=== PATIENT | male | born 1970 | race Caucasian/White ===

== ENCOUNTER 2019-02-21 08:48 | Emergency (ER) | payer OTHER ==
--- NOTE | 2019-02-21 09:37 | ED Physician Documentation ---
PD HPI ABD PAIN - Stated complaint Stated Complaint: SIDE PAIN - Chief complaint Chief Complaint: Abd Pain - History obtained from History obtained from: Patient - History of Present Illness Timing - onset: How many days ago (3) Timing - duration: Days (3) Timing - details: Gradual onset, Still present, Waxing and waning Quality: Sharp, Pain Location: RUQ, LUQ Radiation: Left flank Worsened by: Breathing Associated symptoms: No: Fever, Nausea, Vomiting Similar symptoms before: Has not had sx before Recently seen: Not recently seen - Additional information Additional information: Previously well 49-year-old male has developed pain in both of his flanks over the past 3 days. He has had some of the right side he said some in the left side today's had pain in the left side and it hurts to take deep breath. He does not have any other pain and he has not had vomiting he has been able to eat he is had normal bowel movements. He denies any urinary urgency or dysuria he does state that he has some foul-smelling urine. He notes cloudiness to his urine periodically. He is felt that he has had some type of a problem for 2 years. He does have a history previously of kidney stone is had to have stones broken up. Review of Systems Constitutional: denies: Fever Eyes: denies: Decreased vision Ears: denies: Ear pain Nose: denies: Congestion Cardiac: denies: Chest pain / pressure Respiratory: denies: Dyspnea, Cough GI: reports: Abdominal Pain. denies: Nausea, Vomiting : denies: Dysuria, Frequency Skin: denies: Rash Musculoskeletal: reports: Back pain. denies: Neck pain PD PAST MEDICAL HISTORY - Present Medications Home Medications: Ambulatory Orders Medication Instructions Recorded Confirmed Levothyroxine [Synthroid] 75 mcg PO QDAC 02/21/19 02/21/19 Sulfamethoxazole/Trimethoprim 1 each PO BID #14 tablet 02/21/19 [Sulfamethoxazole-Tmp Ds Tablet] - Allergies Allergies/Adverse Reactions: Allergies Allergy/AdvReac Type Severity Reaction Status Date / Time bee pollen Allergy Unknown Verified 02/21/19 08:57 PD ED PE NORMAL - Vitals Vital signs reviewed: Yes (hypertensive ) - General General: Alert and oriented X 3, No acute distress, Well developed/nourished - HEENT HEENT: Atraumatic, PERRL, EOMI - Neck Neck: Supple, no meningeal sign - Cardiac Cardiac: RRR, No murmur - Respiratory Respiratory: No respiratory distress, Clear bilaterally - Abdomen Abdomen: Normal bowel sounds, Soft, Non tender, Non distended, No organomegaly - Back Back: No CVA TTP, No spinal TTP - Derm Derm: Normal color, Warm and dry, No rash - Extremities Extremities: No deformity, No edema - Neuro Neuro: Alert and oriented X 3, furniture polisher 2-12 intact, No motor deficit, No sensory deficit, Normal speech Eye Opening: Spontaneous Motor: Obeys Commands Verbal: Oriented GCS Score: 15 - Psych Psych: Normal mood, Normal affect Results - Vitals Vitals: Vital Signs - 24 hr 02/21/19 02/21/19 08:54 10:20 Temperature 36.5 C 36.2 C L Heart Rate 74 72 Respiratory 20 18 Rate Blood Pressure 206/166 H 156/117 H O2 Saturation 96 97 Oxygen O2 Source Room air - Labs Labs: Laboratory Tests 02/21/19 02/21/19 02/21/19 09:33 09:33 11:53 WBC 6.3 RBC 5.42 Hgb 16.3 Hct 49.1 MCV 90.6 MCH 30.1 MCHC 33.2 RDW 13.2 Plt Count 188 MPV 9.3 Neut # (Auto) 3.9 Lymph # (Auto) 1.6 [place] # (Auto) 0.6 Eos # (Auto) 0.2 Baso # (Auto) 0.0 Absolute Nucleated RBC 0.00 Nucleated RBC % 0.0 Sodium 141 Potassium 3.9 Chloride 105 Carbon Dioxide 29 Anion Gap 7.0 BUN 15 Creatinine 1.0 Estimated GFR (MDRD) 79 L Glucose 110 H Calcium 9.3 Total Bilirubin 2.3 H AST 24 ALT 29 Alkaline Phosphatase 53 Total Protein 7.9 Albumin 4.5 Globulin 3.4 Albumin/Globulin Ratio 1.3 Lipase 29 Urine Color YELLOW Urine Clarity CLEAR Urine pH 6.0 Ur Specific [place] 1.025 Urine Protein NEGATIVE Urine Glucose (UA) NEGATIVE Urine Ketones NEGATIVE Urine Occult Blood NEGATIVE Urine Nitrite POSITIVE H Urine Bilirubin NEGATIVE Urine Urobilinogen 0.2 (NORMAL) Ur Leukocyte Esterase TRACE H Urine RBC None Seen Urine WBC 11-25 H Ur Squamous Epith Cells RARE Squamous Urine Bacteria Many H Ur Microscopic Review INDICATED Urine Culture Comments INDICATED - Rads (name of study) CT ab/pel Radiology: Prelim report reviewed (Impression: There is a nonobstructing 2 mm stone in the right kidney and a nonobstructing 3 mm stone in the left kidney. No hydronephrosis or hydroureter. No stone in the bladder.), EMP read indepedently, See rad report PD MEDICAL DECISION MAKING - ED course Complexity details: reviewed results, re-evaluated patient, considered differential, d/w patient ED course: 49-year-old male with left-sided flank pain that was not particularly tender on examination and his story was concerning for a possible kidney stone. A CT scan of the abdomen pelvis is obtained demonstrating stones in both kidneys but nothing in the collecting system. The patient was finally able to produce a urine specimen which demonstrated evidence of infection. He was administered Rocephin 1 g intravenously and will place him on some Sept. I have asked patient to follow-up with urology. Departure - Departure Disposition: 01 Home, Self Care Clinical Impression: Urinary tract infection Qualifiers: Urinary tract infection type: acute pyelonephritis Qualified Code(s): N10 - Acute pyelonephritis Instructions: ED UTI Pyelonephritis Male Follow-Up: Eleazar Melgar MD [Primary Care Provider] - Franco Crooks MD [Provider Admit Priv/Credential] - Prescriptions: Sulfamethoxazole/Trimethoprim [Sulfamethoxazole-Tmp Ds Tablet] 1 each PO BID #14 tablet
[2019-02-21 09:46] LABS: BASOPHILS % (AUTO) 0.3 %; EOSINOPHILS # (AUTO) 0.2 10^3/uL (0.0-0.7); EOSINOPHILS % (AUTO) 3.2 %; HGB - HEMOGLOBIN 16.3 g/dL (14.0-18.0); LYMPHOCYTES # (AUTO) 1.6 10^3/uL (1.5-3.5); LYMPHOCYTES % (AUTO) 25.6 %; MEAN CORPUSCULAR HEMOGLOBIN 30.1 pg (27.0-31.0); MEAN CORPUSCULAR HGB CONC 33.2 g/dL (32.0-36.0); MEAN CORPUSCULAR VOLUME 90.6 fL (80.0-94.0); MEAN PLATELET VOLUME 9.3 fL (7.4-11.4); MONOCYTES # (AUTO) 0.6 10^3/uL (0.0-1.0); MONOCYTES % (AUTO) 8.8 %; NEUTROPHILS # (AUTO) 3.9 10^3/uL (1.5-6.6); NEUTROPHILS % (AUTO) 61.8 %; PLT - PLATELET COUNT 188 10^3/uL (130-450); RED BLOOD COUNT 5.42 10^6/uL (4.70-6.10); RED CELL DISTRIBUTION WIDTH 13.2 % (12.0-15.0); WHITE BLOOD COUNT 6.3 x10^3/uL (4.8-10.8)
[2019-02-21 09:55] LABS: ALBUMIN 4.5 g/dL (3.2-5.5); ALBUMIN/GLOBULIN RATIO 1.3 (1.0-2.2); BILIRUBIN,TOTAL 2.3 mg/dL (0.2-1.0); CALCIUM 9.3 mg/dL (8.5-10.3); TOTAL PROTEIN 7.9 g/dL (6.7-8.2)
--- NOTE | 2019-02-21 10:47 | CT Report ---
Reason: left flank pain Procedure Date: 02/21/2019 Accession Number: [id number] / [id number] Procedure: CT - Abdomen/Pelvis WO CPT Code: FULL RESULT: EXAM: CT ABDOMEN AND PELVIS (CT KUB) EXAM DATE: 02/21/2019 10:18 AM. CLINICAL HISTORY: Left flank pain. COMPARISONS: None. TECHNIQUE: Routine axial helical CT imaging was performed through the abdomen and pelvis without IV contrast. Reconstructions: Coronal and sagittal. In accordance with CT protocol optimization, one or more of the following dose reduction techniques were utilized for this exam: automated exposure control, adjustment of mA and/or KV based on patient size, or use of iterative reconstructive technique. FINDINGS: Lung Bases: Small left-sided pleural effusion. No focal consolidation in the lung bases. Right Kidney/Ureter: There is a nonobstructing 2 mm stone in the right kidney with no hydronephrosis or hydroureter. Left Kidney/Ureter: There is a nonobstructing 3 mm stone in the left kidney. No hydronephrosis or hydroureter. Other Solid Organs: Noncontrast images of the solid organs are grossly unremarkable. Gallbladder/Bile Ducts: Unremarkable. Peritoneal Cavity: There is a fat-containing umbilical hernia measuring up to 14 mm at the neck. No free fluid, free air or griffin adenopathy. Bowel is grossly unremarkable. Pelvic Organs: No bladder stones or wall thickening. Noncontrast images of the visualized pelvic organs are unremarkable. Vasculature: Unremarkable. Other: None. IMPRESSION: There is a nonobstructing 2 mm stone in the right kidney and a nonobstructing 3 mm stone in the left kidney. No hydronephrosis or hydroureter. No stone in the bladder. RADIA
[2019-02-21 12:12] LABS: BILIRUBIN,URINE NEGATIVE (NEGATIVE); GLUCOSE, URINE (UA) NEGATIVE (NEGATIVE); KETONES,URINE (UA) NEGATIVE (NEGATIVE); LEUKOCYTE ESTERASE, URINE TRACE (NEGATIVE); NITRITE,URINE POSITIVE (NEGATIVE); OCCULT BLOOD,URINE NEGATIVE (NEGATIVE); PROTEIN,URINE NEGATIVE (NEGATIVE); UROBILINOGEN,URINE 0.2 (NORMAL) E.U./dL (NORMAL)
[2019-02-21 12:35] LABS: CLARITY,URINE CLEAR (CLEAR)
[2019-02-21 12:41] LABS: BACTERIA,URINE Many /HPF (None Seen); RBC,URINE None Seen /HPF (0-5); SQUAMOUS EPITHELIAL CELL,UR RARE Squamous (<= Few)
[2019-02-21] MEDS ORDERED: cefTRIAXone 1 GM in SODIUM CHLORIDE 0.9% MINIBAG 100 ML IV STA (12:59)
[2019-02-21 13:32] VITALS: BP 158/104
== END 2019-02-21 13:32 | disposition home or self-care (01) ==
LOC: ED 08:48
DX: N10 Acute pyelonephritis (principal); N20.0 Calculus of kidney
CPT/HCPCS: 36415; 74176; 80053; 81001; 81003; 83690; 85025; 87086; 87181; 96374; 99283

== ENCOUNTER 2019-06-20 16:26 | Outpatient (CLI) | payer OTHER ==
--- NOTE | 2019-06-21 08:21 | Ultrasound Report ---
Reason: KIDNEY STONE, PAIN OF TOE OF RT FOOT Procedure Date: 06/20/2019 Accession Number: [id number] / [id number] Procedure: US - Retroperitoneal CPT Code: Final Report FULL RESULT: EXAM: RENAL ULTRASOUND EXAM DATE: 06/20/2019 05:20 PM. CLINICAL HISTORY: Kidney stone, pain of toe of right foot. COMPARISON: ABDOMEN/PELVIS W/O 02/21/2019 10:08 AM. TECHNIQUE: Real-time scanning was performed with static images obtained. FINDINGS: Right Kidney: 11.8 x 5.1 x 4.7 cm. Normal echotexture. No renal calculi are definitively seen on the current study. No hydronephrosis. No solid renal masses. Left Kidney: 10.6 x 7.4 x 5.7 cm. Normal echotexture. No renal calculi are definitively seen on the current study. No hydronephrosis. No solid renal masses. Bladder: Bilateral jets seen. The prevoid bladder volume was 228 cc. The postvoid bladder volume was 68.6 cc. Other: Incidental note is made of increased echotexture of the hepatic parenchyma which can be seen with hepatic steatosis. IMPRESSION: 1. Normal renal echotexture. 2. No hydronephrosis. 3. No definitive renal calculi are identified sonographically on the current study. RADIA
--- NOTE | 2019-06-23 03:02 | XRAY Report ---
Reason: PAIN OF TOE OF RT FOOT Procedure Date: 06/20/2019 Accession Number: [id number] / [id number] Procedure: XR - Foot 3 View RT CPT Code: Final Report FULL RESULT: EXAM: RIGHT FOOT RADIOGRAPHY EXAM DATE: 06/20/2019 04:49 PM. CLINICAL HISTORY: PAIN OF TOE OF RT FOOT. COMPARISON: None. TECHNIQUE: 3 views. FINDINGS: There is narrowing of the first metatarsal phalangeal joint space with associated sclerosis and osteophyte formation. No subluxation is seen. There is no evidence of fracture or dislocation. The remaining joint spaces are preserved. There is no focal soft tissue edema. IMPRESSION: Degenerative changes in the first metatarsophalangeal joint. RADIA
== END 2019-06-20 16:27 | disposition home or self-care (01) ==
LOC: DI 16:26
PROVIDERS: ATTEND Internal Medicine
DX: N20.0 Calculus of kidney (principal); M19.071 Primary osteoarthritis, right ankle and foot
CPT/HCPCS: 76770

== ENCOUNTER 2020-04-02 10:37 | Outpatient (CLI) | payer OTHER | END 2020-04-02 10:38 | disposition home or self-care (01) | LOC: LAB 10:37 | PROVIDERS: ATTEND Surgery | DX: Z01.812 Encounter for preprocedural laboratory examination (principal); K42.9 Umbilical hernia without obstruction or gangrene; Z20.828 Contact with and (suspected) exposure to other viral communicable diseases ==

== ENCOUNTER 2020-04-06 09:16 | Day surgery (SDC) | payer OTHER ==
[2020-04-06] MEDS ORDERED: LACTATED RINGERS 1,000 ML IV ONE ×2 (09:25→11:26)
[2020-04-06] MEDS ORDERED: LIDOCAINE 1%-EPI 1:100000 20 ML MDV ONE (09:39)
[2020-04-06] MEDS ORDERED: ceFAZolin 1 GM VIAL ONE (09:39)
[2020-04-06] MEDS ORDERED: BUPIVACAINE 0.5% PF 30 ML VIAL ONE (09:39)
--- NOTE | 2020-04-06 10:07 | ANESTHESIA ---
Pre-Anesthesia VS, & Labs - Diagnosis umbilical hernia repair - Procedure umbilical hernia repair Vital Signs: Temp Pulse Resp BP Pulse Ox 36.8 C 65 16 133/88 H 100 04/06/20 09:30 04/06/20 09:30 04/06/20 09:30 04/06/20 09:30 04/06/20 09:30 Height: 6 ft Weight (kg): 90.5 kg Body Mass Index: 27.0 BMI Classification: Overweight - NPO >8 hours Home Medications and Allergies Home Medications: Ambulatory Orders Levothyroxine Sodium [Euthyrox] 175 mcg PO DAILY 03/25/20 Losartan Potassium 50 mg PO DAILY 03/25/20 Levothyroxine Sodium [Euthyrox] 175 mcg PO DAILY 03/25/20 Losartan Potassium 50 mg PO DAILY 03/25/20 Allergies/Adverse Reactions: Allergies Allergy/AdvReac Type Severity Reaction Status Date / Time bee venom protein (honey bee) Allergy Edema Verified 04/06/20 10:09 Anes History & Medical History - Anesthetic History Family history of Anesthesia Complications: Denies Family history of Malignant Hyperthermia: Denies - Medical History Cardiovascular: reports: Hypertension Pulmonary: reports: None Gastrointestinal: reports: None Urinary: reports: Kidney stones Neuro: reports: None Musculoskeletal: reports: Osteoarthritis Endocrine/Autoimmune: reports: HyPOthyroidism Blood Disorders: reports: None Skin: reports: Psoriasis Smoking Status: Never smoker Psychosocial: reports: No issues indicated History of Cancer?: No - Surgical History Other Past Surgical History: ESWL Exam General: Alert, Oriented x3, Cooperative, No acute distress Dental: WNL Mouth Openin Fingerbreadth Neck Mobility: Normal Mallampati classification: II Thyromental Distance: 4-6 cm Mental/Cognitive Status: Alert/Oriented X3, Normal for patient Plan Anesthesia Type: General Consent for Procedure(s) Verified and Reviewed: Yes Code Status: Attempt Resuscitation ASA classification: 2-Mild systemic disease Is this case an emergency?: No
[2020-04-06] MEDS ORDERED: LIDOCAINE 1%-EPI 1:100000 20 ML MDV SUBQ ONE ×2 (10:09)
[2020-04-06] MEDS ORDERED: BUPIVACAINE 0.5% PF 30 ML VIAL SUBQ ONE ×2 (10:09)
[2020-04-06] MEDS ORDERED: ceFAZolin 1 GM VIAL IR ONE (10:10)
[2020-04-06] MEDS ORDERED: fentaNYL 100 MCG/2 ML VIAL IVP ONE (10:22)
[2020-04-06] MEDS ORDERED: HYDROmorphone 1 MG/ML CARPUJECT IVP ONE (10:22)
[2020-04-06] MEDS ORDERED: LIDOCAINE-MPF 2% 5 ML VIAL IM ONE (10:22)
[2020-04-06] MEDS ORDERED: CEFAZOLIN SODIUM IN 0.9 % NACL 2 GM/100 ML BAG IV ONE (10:22)
[2020-04-06] MEDS ORDERED: PROPOFOL 200 MG/20 ML VIAL IVP ONE (10:22)
[2020-04-06] MEDS ORDERED: KETOROLAC 30 MG/ML VIAL IVP ONE (10:22)
[2020-04-06] MEDS ORDERED: MIDAZOLAM 2 MG/2 ML VIAL IVP ONE (10:22)
[2020-04-06] MEDS ORDERED: DEXAMETHASONE 4 MG/ML VIAL IVP ONE (10:22)
[2020-04-06] MEDS ORDERED: ONDANSETRON 4 MG/2 ML VIAL IVP ONE (10:22)
[2020-04-06] MEDS ORDERED: GLYCOPYRROLATE 1 MG/5 ML VIAL IVP ONE (10:22)
--- NOTE | 2020-04-06 11:26 | OPERATIVE REPORT ---
Operative Report - General Procedure Date: 04/06/20 Planned Procedure: Umbilical Hernia Repair Pre-Op Diagnosis: Painful and frequently incarcerated umbilical hernia Procedure Performed: Umbilical hernia repair with Ventralex ST Hernia Patch - 8.4 cm Post Op Diagnosis: Painful and frequently incarcerated umbilical hernia - Procedure Note Primary Surgeon: Mary Jo Anesthesia Provider: SUSHMA Morillo Anesthesia Technique: General LMA Pathology: None Estimated Blood Loss (mL): 10 Indications: Hernia Findings: 2 cm defect with a 7 cm sack containing preperitoneal fat, peritoneum and omentum Complications: None apparent - Other Other Information/Narrative: After obtaining informed consent, the patient is brought to the operating room and placed in the supine position on the operating table. Following successful induction of general endotracheal anesthesia, appropriate padding of all bony prominences, and placement of appropriate monitors, the abdomen was prepped and draped in the standard surgical fashion. A timeout was held per scope protocol. All elements of the surgical safety checklist were followed before, during, and after the procedure. We began the procedure by infiltrating a mixture of local anesthetics in and around the umbilicus at the site of the defect. An incision was created directly through the umbilicus and carried down through the skin to reveal the hernia sac and contents below. Without making a defect within the sac, the sac and its contents were carefully dissected free from the overlying skin and fascia. They were placed back into the abdominal cavity again without opening the sac. In the preperitoneal space, an area was dissected bluntly large enough for placement of mesh.An 8.4 cm portion of ventral Eddie ST mesh was then deployed into the defect in the preperitoneal space. The mesh was straightened and flattened and the attaching leaflets were trimmed. The mesh was then attached to the fascia at the umbilicus with interrupted Vicryl sutures. The wound was then checked for hemostasis and irrigated with warm saline solution. The umbilicus was reconstructed with Vicryl and Monocryl sutures. Dermabond was applied to the skin. All sponge, needle, and instrument counts were correct at the conclusion of the case. The patient was allowed to wake from anesthesia without difficulty and taken to the post anesthesia care unit in good condition.
[2020-04-06] MEDS ORDERED: ACETAMINOPHEN 325 MG TABLET PO PRN (11:30)
[2020-04-06] MEDS ORDERED: IBUPROFEN 600 MG TABLET PO PRN (11:30)
[2020-04-06] MEDS ORDERED: ONDANSETRON 4 MG/2 ML VIAL IVP PRN ×2 (11:30→12:14)
[2020-04-06] MEDS ORDERED: oxyCODONE 5 MG TABLET PO PRN (11:30)
[2020-04-06] MEDS ORDERED: MORPHINE 2 MG/ML CARPUJECT IVP PRN (12:14)
[2020-04-06] MEDS ORDERED: NALOXONE 0.4 MG/ML VIAL IVP PRN (12:14)
[2020-04-06] MEDS ORDERED: fentaNYL 100 MCG/2 ML VIAL IVP PRN (12:14)
[2020-04-06] MEDS ORDERED: ATROPINE ABBOJECT 1 MG/10 ML SYRINGE IVP PRN (12:14)
[2020-04-06] MEDS ORDERED: HYDROmorphone 0.5 MG/0.5 ML SYRINGE IVP PRN (12:14)
--- NOTE | 2020-04-06 12:15 | ANESTHESIA POST OP EVALUATION ---
Anesthesia Post Eval - Post Anesthesia Eval Vitals: Last Vital Signs Temp 36.7 C 04/06/20 12:03 Pulse 78 04/06/20 12:03 Resp 14 04/06/20 12:03 BP 123/82 H 04/06/20 12:03 Pulse Ox 94 04/06/20 12:03 CV Function Including HR & BP: positive: Stable Pain Control: positive: Satisfactory Nausea & Vomiting: positive: Negative Mental Status: positive: Baseline Respiratory Status: Airway Patent Hydration Status: Satisfactory Anesthesia Complications: positive: None
[2020-04-06] MEDS ORDERED: LACTATED RINGERS 1,000 ML IV SCH (13:00)
[2020-04-06 13:30] VITALS: BP 137/94
== END 2020-04-06 09:17 | disposition home or self-care (01) ==
LOC: SDS 09:16
PROVIDERS: ATTEND Surgery
PROC: 0WUF0JZ Supplement Abdominal Wall with Synthetic Substitute, Open Approach (ICD-10-PCS; principal; 2020-04-06 10:30)
DX: K42.0 Umbilical hernia with obstruction, without gangrene (principal); I10 Essential (primary) hypertension; E03.9 Hypothyroidism, unspecified
CPT/HCPCS: 49587; C1781; J0690; J1170; J7120

== ENCOUNTER 2020-10-14 00:43 | Emergency (ER) | payer MEDICAID, OTHER ==
[2020-10-14] MEDS ORDERED: DEXAMETHASONE 10 MG/ML VIAL PO STA (01:21)
[2020-10-14] MEDS ORDERED: CHERRY SYRUP 10 ML UDC PO ONE (01:21)
[2020-10-14] MEDS ORDERED: KETOROLAC 60 MG/2 ML VIAL IM STA (01:22)
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
[2020-10-14 02:45] VITALS: BP 162/90
--- NOTE | 2020-10-14 09:55 | XRAY Report ---
PROCEDURE: Knee 4 View RT INDICATIONS: medial pain /swelling TECHNIQUE: 4 views of the right knee(s) were acquired. COMPARISON: None. FINDINGS: Scattered subchondral sclerosis and spurring. No fracture. Moderate joint effusion. IMPRESSION: Moderate joint effusion. No definite fracture however follow-up radiographs in 10 days c ould be performed if the patient's symptoms do not improve to exclude occult fracture/assess for heal ing sclerosis. Or, MRI knee could be performed for further evaluation. Reviewed by: Riki Dumont MD on 10/14/2020 9:53 AM PDT Approved by: Riki Dumont MD on 10/14/2020 9:53 AM PDT Station ID: [id number]
== END 2020-10-14 02:44 | disposition home or self-care (01) ==
LOC: ED 00:43
DX: I10 Essential (primary) hypertension (principal); S83.411A Sprain of medial collateral ligament of right knee, initial encounter; V28.0XXA Motorcycle driver injured in noncollision transport accident in nontraffic accident, initial encounter; Y92.830 Public park as the place of occurrence of the external cause
CPT/HCPCS: 73564; 96372; 99283; 99284; A9270